=== PATIENT | female | born 1945 | race Caucasian/White ===

== ENCOUNTER 2017-11-24 13:36 | Day surgery (SDC) | payer OTHER ==
[2017-11-24] MEDS ORDERED: LR 1,000 ML IV (13:45)
[2017-11-24 14:26] LABS: INR 1.74; PROTHROMBIN TIME 20.9 SECONDS (12.4-14.5)
[2017-11-24] MEDS ORDERED: LIDOCAINE 1% SDV INJ 30 ML VIAL As Ordered (16:13)
[2017-11-24] MEDS ORDERED: LIDOCAINE 2% INJ 100 MG/5 ML SDV (FOR ANES.) As Ordered (16:24)
[2017-11-24] MEDS ORDERED: PROPOFOL 200 MG/20 ML VIAL As Ordered (16:24)
[2017-11-24] MEDS ORDERED: fentaNYL 100 MCG/2 ML INJECTION (J3010) As Ordered (16:25)
[2017-11-24] MEDS ORDERED: MIDAZOLAM INJ 2 MG/2 ML VIAL (J2250) As Ordered (16:25)
[2017-11-24] MEDS ORDERED: POLYSPORIN TOPICAL OINTMENT 15GM As Ordered (16:40)
[2017-11-24] MEDS ORDERED: NEOSPORIN TOP OINT 15GM As Ordered (16:41)
== END 2017-11-24 19:05 | disposition home or self-care (01) ==
LOC: M SDC 19:05
DX: T82.111A Breakdown (mechanical) of cardiac pulse generator (battery), initial encounter (principal); I48.0 Paroxysmal atrial fibrillation; I48.92 Unspecified atrial flutter; I49.5 Sick sinus syndrome; R94.31 Abnormal electrocardiogram [ECG] [EKG]; G47.33 Obstructive sleep apnea (adult) (pediatric); I34.1 Nonrheumatic mitral (valve) prolapse; I71.4 Abdominal aortic aneurysm, without rupture; E03.9 Hypothyroidism, unspecified; M12.9 Arthropathy, unspecified; M54.9 Dorsalgia, unspecified; B27.90 Infectious mononucleosis, unspecified without complication; L30.9 Dermatitis, unspecified; F41.9 Anxiety disorder, unspecified; F32.9 Major depressive disorder, single episode, unspecified; R06.83 Snoring; T88.59XD Other complications of anesthesia, subsequent encounter; Z88.1 Allergy status to other antibiotic agents; Z79.899 Other long term (current) drug therapy; Z79.01 Long term (current) use of anticoagulants; Z79.82 Long term (current) use of aspirin; Z90.710 Acquired absence of both cervix and uterus; Z96.1 Presence of intraocular lens; Z85.828 Personal history of other malignant neoplasm of skin; X58.XXXA Exposure to other specified factors, initial encounter; Y93.89 Activity, other specified; Y92.89 Other specified places as the place of occurrence of the external cause; Y99.8 Other external cause status
CPT/HCPCS: 33228